=== PATIENT | female | born 1955 | race African-American/Black ===

== ENCOUNTER 2022-08-21 04:57 | Inpatient (IN) | payer OTHER ==
[2022-08-21] MEDS ORDERED: DEXAMETHASONE SOD PHOSPHATE 4 MG/1 ML VIAL IVPUSH ONE (05:21)
[2022-08-21] MEDS ORDERED: ACETAMINOPHEN 1000 MG/100 ML BAG IVPB ONE (05:24)
[2022-08-21] MEDS: ALBUTEROL SO4 2.5/IPRATROPIUM 0.5 INH SOL 3 ML VIAL.NEB. NEB SCH ×6 (05:29→20:48)
[2022-08-21] MEDS ORDERED: SODIUM CHLORIDE 0.9% 500 ML INFUS.BAG IV ONE (05:32)
[2022-08-21] MEDS ORDERED: DEXAMETHASONE SOD PHOSPHATE 10 MG/1 ML VIAL ONE (05:52)
[2022-08-21] MEDS ORDERED: ACETAMINOPHEN INJECTION 100 ML IVPB ONE (05:52)
[2022-08-21 06:43] LABS: VENOUS BASE EXCESS 0.3 mmol/L (-2-2); VENOUS O2 SATURATION 58.7 % (70-80); VENOUS PCO2 59.1 mmHg (38-52); VENOUS PH 7.295 (7.310-7.410)
[2022-08-21 07:02] LABS: CALCIUM 8.6 mg/dL (8.5-10.1)
[2022-08-21 07:03] LABS: ALBUMIN 3.4 g/dl (3.4-5.0); BLOOD UREA NITROGEN 14.7 mg/dL (7-18)
[2022-08-21 07:06] LABS: CREATININE 0.8 mg/dL (0.55-1.3)
[2022-08-21 07:07] LABS: HEMATOCRIT 41.4 % (32.4-45.2); HEMOGLOBIN 13.3 GM/dL (10.7-15.3); LYMPH % 12.5 % (8-40); MCH 31.9 pg (25.7-33.7); MCHC 32.1 g/dl (32.0-36.0); MEAN CELL VOLUME 99.3 fl (80-96); MEAN PLT VOLUME 8.7 fl (7.5-11.1); MONO % 8.8 % (3.8-10.2); NEUT % 75.7 % (42.8-82.8); PLATELET COUNT 229 10^3/uL (134-434); RBC 4.17 M/mm3 (3.60-5.2); RDW 14.2 % (11.6-15.6)
[2022-08-21 07:08] LABS: BILIRUBIN,TOTAL 0.5 mg/dL (0.2-1); TOT PROT 7.4 g/dl (6.4-8.2)
[2022-08-21 07:09] LABS: INR 1.19 (0.83-1.09); PROTHROMBIN TIME (PATIENT) 13.7 SEC (9.7-13.0)
[2022-08-21] MEDS ORDERED: AZITHROMYCIN IVPB 500 MG in DEXTROSE 5%-WATER - 250 ML IVPB ONE (08:12)
[2022-08-21] MEDS ORDERED: CEFTRIAXONE 1,000 MG in DEXTROSE 5%-WATER - 50 ML IVPB ONE (08:12)
[2022-08-21] MEDS ORDERED: CEFTRIAXONE 1 GM/50 ML BAG ONE (08:31)
[2022-08-21] MEDS ORDERED: AZITHROMYCIN IVPB 500 MG/250 ML BAG IVPB ONE (08:32)
[2022-08-21] MEDS ORDERED: ALBUTEROL SO4 2.5/IPRATROPIUM 0.5 INH SOL 3 ML VIAL.NEB. NEB ONE ×2 (09:53→15:17)
[2022-08-21] MEDS ORDERED: ENALAPRIL MALEATE 5 MG TABLET ONE (09:54)
[2022-08-21] MEDS: ENALAPRIL MALEATE 5 MG TABLET PO SCH (09:59)
[2022-08-21] MEDS ORDERED: MELATONIN 1 MG TABLET PO ONE (17:53)
[2022-08-21] MEDS ORDERED: ACETAMINOPHEN 325 MG TABLET (FP) PO PRN (17:57)
[2022-08-21 18:03] VITALS: BMI 27.1
[2022-08-21] MEDS ORDERED: PNEUMOC 20-VAL CONJ-DIP CRM/PF 0.5 ML SYRINGE IM ONE (19:00)
[2022-08-21] MEDS: ATORVASTATIN CA 10 MG TABLET (FP) PO SCH (22:20)
[2022-08-22] MEDS: ALBUTEROL SO4 2.5/IPRATROPIUM 0.5 INH SOL 3 ML VIAL.NEB. NEB SCH ×4 (08:54→20:05)
[2022-08-22 09:26] LABS: HEMOGLOBIN 11.8 GM/dL (10.7-15.3); MCH 32.6 pg (25.7-33.7); MCHC 32.8 g/dl (32.0-36.0); MEAN CELL VOLUME 99.5 fl (80-96); MEAN PLT VOLUME 8.1 fl (7.5-11.1); PLATELET COUNT 197 10^3/uL (134-434); RBC 3.62 M/mm3 (3.60-5.2); RDW 14.5 % (11.6-15.6); WHITE BLOOD COUNT 6.3 K/mm3 (4.0-10.0)
[2022-08-22 09:40] LABS: CALCIUM 8.5 mg/dL (8.5-10.1)
[2022-08-22 09:41] LABS: ALBUMIN 3.2 g/dl (3.4-5.0); BLOOD UREA NITROGEN 13.6 mg/dL (7-18); MAGNESIUM 2.2 mg/dL (1.8-2.4)
[2022-08-22 09:44] LABS: CREATININE 0.7 mg/dL (0.55-1.3)
[2022-08-22 09:46] LABS: BILIRUBIN,TOTAL 0.4 mg/dL (0.2-1); TOT PROT 6.8 g/dl (6.4-8.2)
[2022-08-22] MEDS ORDERED: DEXAMETHASONE SOD PHOSPHATE 10 MG/1 ML VIAL IVPUSH SCH (10:00)
[2022-08-22] MEDS: ENALAPRIL MALEATE 5 MG TABLET PO SCH (10:23)
[2022-08-22] MEDS ORDERED: ALBUTEROL SO4 HFA INHALER IH PRN (16:36)
[2022-08-22] MEDS: methylPREDNISolone NA SUCC 40 MG/1 ML VIAL IVPUSH SCH (18:31)
[2022-08-22] MEDS: MELATONIN 5 MG TABLETS PO PRN (23:00)
[2022-08-22] MEDS: ATORVASTATIN CA 10 MG TABLET (FP) PO SCH (23:00)
[2022-08-23] MEDS: methylPREDNISolone NA SUCC 40 MG/1 ML VIAL IVPUSH SCH ×3 (01:52→17:47)
[2022-08-23] MEDS ORDERED: POLYETHYLENE GLYCOL (HEALTHYLAX) 3350 17 GM PACKET PO ONE (03:15)
[2022-08-23 07:23] LABS: BASO % 0.1 % (0-2.0); HEMATOCRIT 35.5 % (32.4-45.2); HEMOGLOBIN 11.5 GM/dL (10.7-15.3); MCH 31.8 pg (25.7-33.7); MCHC 32.3 g/dl (32.0-36.0); MEAN CELL VOLUME 98.5 fl (80-96); MEAN PLT VOLUME 8.2 fl (7.5-11.1); MONO % 5.1 % (3.8-10.2); NEUT % 83.8 % (42.8-82.8); PLATELET COUNT 218 10^3/uL (134-434); WHITE BLOOD COUNT 6.5 K/mm3 (4.0-10.0)
[2022-08-23] MEDS: ALBUTEROL SO4 2.5/IPRATROPIUM 0.5 INH SOL 3 ML VIAL.NEB. NEB SCH ×4 (07:35→20:35)
[2022-08-23 07:48] LABS: CALCIUM 8.8 mg/dL (8.5-10.1)
[2022-08-23 07:49] LABS: ALBUMIN 3.1 g/dl (3.4-5.0); BLOOD UREA NITROGEN 11.5 mg/dL (7-18); MAGNESIUM 2.1 mg/dL (1.8-2.4)
[2022-08-23 07:52] LABS: CREATININE 0.5 mg/dL (0.55-1.3); PHOSPHOROUS 3.3 mg/dL (2.5-4.9)
[2022-08-23 07:53] LABS: BILIRUBIN,TOTAL 0.3 mg/dL (0.2-1); TOT PROT 6.6 g/dl (6.4-8.2)
[2022-08-23] MEDS: ENOXAPARIN NA (PORCINE) 40 MG/0.4 ML DISP.SYRIN SQ SCH (10:28)
[2022-08-23] MEDS: ENALAPRIL MALEATE 5 MG TABLET PO SCH (10:29)
[2022-08-23] MEDS ORDERED: BISACODYL 5 MG TABLET.DR (FP) PO ONE (14:10)
[2022-08-23 17:02] LABS: ARTERIAL BLOOD GAS BASE EXCESS 9.5 mmol/L (-2-2); ARTERIAL BLOOD GAS PO2 63.2 mmHg (80-100); ARTERIAL BLOOD GAS pH 7.418 (7.350-7.450)
[2022-08-23 17:04] LABS: ALLENS TEST POSITIVE
[2022-08-23] MEDS: MELATONIN 5 MG TABLETS PO PRN (22:29)
[2022-08-23] MEDS: SENNOSIDES 8.8 MG/5 ML SYRUP PO SCH (22:29)
[2022-08-23] MEDS: ATORVASTATIN CA 10 MG TABLET (FP) PO SCH (22:29)
[2022-08-24] MEDS: methylPREDNISolone NA SUCC 40 MG/1 ML VIAL IVPUSH SCH ×3 (03:27→17:50)
[2022-08-24] MEDS: ALBUTEROL SO4 2.5/IPRATROPIUM 0.5 INH SOL 3 ML VIAL.NEB. NEB SCH ×4 (08:16→20:45)
[2022-08-24 08:39] LABS: BASO % 0.1 % (0-2.0); HEMATOCRIT 36.9 % (32.4-45.2); HEMOGLOBIN 12.1 GM/dL (10.7-15.3); LYMPH % 8.8 % (8-40); MCH 32.1 pg (25.7-33.7); MCHC 32.8 g/dl (32.0-36.0); MEAN CELL VOLUME 98.1 fl (80-96); MEAN PLT VOLUME 8.6 fl (7.5-11.1); MONO % 6.3 % (3.8-10.2); NEUT % 84.8 % (42.8-82.8); PLATELET COUNT 274 10^3/uL (134-434); RBC 3.76 M/mm3 (3.60-5.2); RDW 13.9 % (11.6-15.6); WHITE BLOOD COUNT 8.8 K/mm3 (4.0-10.0)
[2022-08-24 09:39] LABS: BLOOD UREA NITROGEN 16.6 mg/dL (7-18); MAGNESIUM 2.2 mg/dL (1.8-2.4)
[2022-08-24 09:42] LABS: CREATININE 0.8 mg/dL (0.55-1.3); PHOSPHOROUS 4.4 mg/dL (2.5-4.9)
[2022-08-24] MEDS: ENOXAPARIN NA (PORCINE) 40 MG/0.4 ML DISP.SYRIN SQ SCH (10:14)
[2022-08-24] MEDS: ENALAPRIL MALEATE 5 MG TABLET PO SCH (10:14)
[2022-08-24] MEDS: ATORVASTATIN CA 10 MG TABLET (FP) PO SCH (22:19)
[2022-08-24] MEDS: MELATONIN 5 MG TABLETS PO PRN (22:19)
[2022-08-24] MEDS: SENNOSIDES 8.8 MG/5 ML SYRUP PO SCH (22:19)
[2022-08-25] MEDS: methylPREDNISolone NA SUCC 40 MG/1 ML VIAL IVPUSH SCH ×4 (02:16→21:14)
[2022-08-25] MEDS ORDERED: POLYETHYLENE GLYCOL (HEALTHYLAX) 3350 17 GM PACKET PO ONE (06:45)
[2022-08-25] MEDS: ALBUTEROL SO4 2.5/IPRATROPIUM 0.5 INH SOL 3 ML VIAL.NEB. NEB SCH ×4 (07:29→21:15)
[2022-08-25] MEDS: ENOXAPARIN NA (PORCINE) 40 MG/0.4 ML DISP.SYRIN SQ SCH (10:46)
[2022-08-25] MEDS: ENALAPRIL MALEATE 5 MG TABLET PO SCH (10:47)
[2022-08-25] MEDS: ATORVASTATIN CA 10 MG TABLET (FP) PO SCH (21:14)
[2022-08-25] MEDS: SENNOSIDES 8.8 MG/5 ML SYRUP PO SCH (22:23)
[2022-08-26] MEDS: ALBUTEROL SO4 2.5/IPRATROPIUM 0.5 INH SOL 3 ML VIAL.NEB. NEB SCH ×3 (08:05→20:23)
[2022-08-26] MEDS: ENOXAPARIN NA (PORCINE) 40 MG/0.4 ML DISP.SYRIN SQ SCH (09:19)
[2022-08-26] MEDS: methylPREDNISolone NA SUCC 40 MG/1 ML VIAL IVPUSH SCH ×2 (09:19→21:34)
[2022-08-26 12:30] LABS: HEMATOCRIT 40.9 % (32.4-45.2); HEMOGLOBIN 13.2 GM/dL (10.7-15.3); MCH 31.5 pg (25.7-33.7); MCHC 32.3 g/dl (32.0-36.0); MEAN CELL VOLUME 97.4 fl (80-96); MEAN PLT VOLUME 8.4 fl (7.5-11.1); PLATELET COUNT 359 10^3/uL (134-434)
[2022-08-26 13:01] LABS: CALCIUM 8.7 mg/dL (8.5-10.1)
[2022-08-26 13:02] LABS: ALBUMIN 3.2 g/dl (3.4-5.0); BLOOD UREA NITROGEN 18.2 mg/dL (7-18); MAGNESIUM 2.4 mg/dL (1.8-2.4)
[2022-08-26 13:05] LABS: CREATININE 0.6 mg/dL (0.55-1.3); PHOSPHOROUS 3.4 mg/dL (2.5-4.9)
[2022-08-26 13:06] LABS: BILIRUBIN,TOTAL 0.5 mg/dL (0.2-1)
[2022-08-26 13:26] LABS: ANISOCYTOSIS 0; HELMET CELLS 0; HOWELL-JOLLY BODIES 0; MACROCYTOSIS 0; OVALOCYTE 0; ROULEAU 0; SICKELED CELLS 0; TARGET CELLS 0; TEAR DROP CELLS 0; TOXIC GRANULATION 0
[2022-08-26] MEDS: ENALAPRIL MALEATE 5 MG TABLET PO SCH (16:18)
[2022-08-26] MEDS: SENNOSIDES 8.8 MG/5 ML SYRUP PO SCH (21:34)
[2022-08-26] MEDS: ATORVASTATIN CA 10 MG TABLET (FP) PO SCH (21:34)
[2022-08-26] MEDS: MELATONIN 5 MG TABLETS PO PRN (23:02)
[2022-08-27] MEDS: ALBUTEROL SO4 2.5/IPRATROPIUM 0.5 INH SOL 3 ML VIAL.NEB. NEB SCH ×4 (08:45→20:00)
[2022-08-27] MEDS: ENALAPRIL MALEATE 5 MG TABLET PO SCH (09:21)
[2022-08-27] MEDS: ENOXAPARIN NA (PORCINE) 40 MG/0.4 ML DISP.SYRIN SQ SCH (09:22)
[2022-08-27] MEDS: methylPREDNISolone NA SUCC 40 MG/1 ML VIAL IVPUSH SCH ×2 (09:22→22:48)
[2022-08-27 10:29] LABS: CALCIUM 8.4 mg/dL (8.5-10.1)
[2022-08-27 10:30] LABS: BLOOD UREA NITROGEN 17.2 mg/dL (7-18)
[2022-08-27 10:34] LABS: CREATININE 0.7 mg/dL (0.55-1.3)
[2022-08-27] MEDS: FAMOTIDINE 20 MG TABLET PO SCH (16:39)
[2022-08-27] MEDS: ATORVASTATIN CA 10 MG TABLET (FP) PO SCH (22:48)
[2022-08-27] MEDS: SENNOSIDES 8.8 MG/5 ML SYRUP PO SCH (22:49)
[2022-08-28 06:41] VITALS: RESP 20
[2022-08-28] MEDS: ALBUTEROL SO4 2.5/IPRATROPIUM 0.5 INH SOL 3 ML VIAL.NEB. NEB SCH ×3 (08:08→15:15)
[2022-08-28 09:58] LABS: HEMATOCRIT 40.4 % (32.4-45.2); HEMOGLOBIN 13.3 GM/dL (10.7-15.3); MCH 31.9 pg (25.7-33.7); MCHC 32.8 g/dl (32.0-36.0); MEAN CELL VOLUME 97.2 fl (80-96); MEAN PLT VOLUME 8.4 fl (7.5-11.1); PLATELET COUNT 408 10^3/uL (134-434); RBC 4.16 M/mm3 (3.60-5.2); RDW 13.9 % (11.6-15.6); WHITE BLOOD COUNT 13.1 K/mm3 (4.0-10.0)
[2022-08-28 10:21] LABS: BLOOD UREA NITROGEN 16.2 mg/dL (7-18); CALCIUM 8.6 mg/dL (8.5-10.1)
[2022-08-28 10:22] LABS: ALBUMIN 3.2 g/dl (3.4-5.0)
[2022-08-28 10:25] LABS: BILIRUBIN,TOTAL 0.4 mg/dL (0.2-1); CREATININE 0.7 mg/dL (0.55-1.3); TOT PROT 6.7 g/dl (6.4-8.2)
[2022-08-28 11:01] LABS: ANISOCYTOSIS 0; MACROCYTOSIS 0
[2022-08-28] MEDS: ENOXAPARIN NA (PORCINE) 40 MG/0.4 ML DISP.SYRIN SQ SCH (11:18)
[2022-08-28] MEDS: FAMOTIDINE 20 MG TABLET PO SCH (11:18)
[2022-08-28] MEDS: methylPREDNISolone NA SUCC 40 MG/1 ML VIAL IVPUSH SCH (11:18)
[2022-08-28] MEDS: ENALAPRIL MALEATE 5 MG TABLET PO SCH (11:18)
[2022-08-28 15:52] VITALS: BP 166/75; PULSE 98; TEMP 98
[2022-08-29] MEDS ORDERED: predniSONE 20 MG TABLET (UD) PO SCH (10:00)
== END 2022-08-28 17:00 | disposition home or self-care (01) | DRG 189 ==
LOC: JER 04:57 → JERBED 07:59 → J7W 16:45
PROVIDERS: ADMIT Internal Medicine; ATTEND Internal Medicine
DX: J96.01 Acute respiratory failure with hypoxia (principal); J12.9 Viral pneumonia, unspecified; J45.901 Unspecified asthma with (acute) exacerbation; I10 Essential (primary) hypertension; J96.02 Acute respiratory failure with hypercapnia; E78.5 Hyperlipidemia, unspecified; R79.89 Other specified abnormal findings of blood chemistry; Z86.16 Personal history of COVID-19
CPT/HCPCS: 0241U-QW; 36415; 36600; 71045-TC-FY; 71275-TC; 80048; 80053; 82550; 82553; 82803; 83605; 83735; 84100; 84484; 85025; 85027; 85379; 85610; 85651; 85730; 86140; 86850; 86900; 86901; 87040; 93005; 93010; 94010; 94150; 94640; 94761; 97116-GP; 97161-GP; 99285-25; J1100